=== PATIENT | female | born 1975 | race Two or more races ===

== ENCOUNTER 2018-04-01 15:29 | Emergency (ER) | payer MEDICAID ==
[~2018-04-01] VITALS: Ht 152.4 cm; Wt 117.9 kg
[2018-04-01 15:53] VITALS: BP 131/73
[2018-04-01] MEDS ORDERED: KETOROLAC TROMETH 60MG/2ML VIAL IM ONE (16:15)
== END 2018-04-01 17:10 | disposition home or self-care (01) ==
LOC: ER 15:38
DX: L02.212 Cutaneous abscess of back [any part, except buttock and flank] (principal); E11.9 Type 2 diabetes mellitus without complications; Z79.4 Long term (current) use of insulin
CPT/HCPCS: 82962; 96372; 99283; J1885

== ENCOUNTER 2018-04-05 15:00 | Inpatient (IN) | payer MEDICAID ==
[~2018-04-05] VITALS: Ht 162.6 cm; Wt 106.0 kg
[2018-04-05] MEDS ORDERED: cefTRIAXone 1GM/50ML D5W 50 ML IV ONE (20:15)
[2018-04-05] MEDS ORDERED: VANCOMYCIN 1GM/250ML 250 ML IV ONE (20:15)
[2018-04-05 21:17] LABS: Basophils # (auto) 0.1 uL; Basophils % (auto) 1.3 % (0.0-2.0); Eosinophils # (auto) 0.2 uL; Eosinophils % (auto) 1.7 % (0.0-7.0); Hematocrit 34.5 % (36.0-46.0); Hemoglobin 11.1 g/dL (12.2-16.2); Lymphocytes # (auto) 2.4 uL; Lymphocytes % (auto) 24.7 % (10.0-50.0); Mean Corpuscular Hgb Conc. 32.3 g/dL (32.0-36.0); Mean Corpuscular Volume 89.9 fL (80.0-100.0); Monocytes # (auto) 0.9 uL; Neutrophils # (auto) 6.2 uL; Neutrophils % (auto) 63.3 % (37.0-80.0); Nucleated Red Blood Cells % 0.1 %; Platelet Count (auto) 338 10^3/uL (140-450); Red Blood Cells 3.84 10^6/uL (4.0-5.20); Red Cell Distribution Width 13.8 % (11.8-14.3); White Blood Cell 9.8 10^3/uL (4.4-10.8)
[2018-04-05 21:36] LABS: Albumin 2.7 g/dL (3.4-5.0); BUN/Creatinine Ratio 24.7; Calcium 8.9 mg/dL (8.5-10.1)
[2018-04-05 21:38] LABS: Bilirubin, Total 0.5 mg/dL (0.2-1.0); Total Protein 8.4 g/dL (6.4-8.2)
[2018-04-05] MEDS ORDERED: DEXTROSE (50%) 50ML SYRG IV PRN (22:00)
[2018-04-05] MEDS ORDERED: HYDROcodone-ACET 5/325MG TAB PO PRN (22:00)
[2018-04-05] MEDS: InsuLIN REG 1unit/0.01ml Soln (100units/ml) SC SCH (22:00)
[2018-04-05] MEDS: ACCU-CHEK COMFORT CURVE STRIP VI SCH (22:00)
[2018-04-05] MEDS ORDERED: ACETAMINOPHEN 500 MG TAB PO PRN (22:00)
[2018-04-05] MEDS ORDERED: ONDANSETRON HCL 4 MG/2 ML VIAL IV PRN (22:00)
[2018-04-05 22:45] VITALS: BP 130/74
[2018-04-05] MEDS: INSULIN LANTUS (GLARGINE) 1 /0.01ml (100units/ml) SC SCH (23:10)
[2018-04-06] MEDS ORDERED: INSLANTI SC (02:39)
[2018-04-06 05:00] VITALS: BP 129/71
[2018-04-06 06:19] LABS: Basophils # (auto) 0.1 uL; Basophils % (auto) 1.4 % (0.0-2.0); Eosinophils # (auto) 0.2 uL; Eosinophils % (auto) 2.1 % (0.0-7.0); Hematocrit 32.7 % (36.0-46.0); Hemoglobin 10.8 g/dL (12.2-16.2); Lymphocytes # (auto) 2.2 uL; Lymphocytes % (auto) 28.5 % (10.0-50.0); Mean Corpuscular Hemoglobin 29.4 pg (28.0-32.0); Mean Corpuscular Volume 89.1 fL (80.0-100.0); Monocytes # (auto) 0.8 uL; Monocytes % (auto) 10.1 % (0.0-12.0); Neutrophils # (auto) 4.5 uL; Neutrophils % (auto) 57.9 % (37.0-80.0); Nucleated Red Blood Cells % 0.3 %; Platelet Count (auto) 345 10^3/uL (140-450); Red Blood Cells 3.67 10^6/uL (4.0-5.20); Red Cell Distribution Width 13.8 % (11.8-14.3); White Blood Cell 7.8 10^3/uL (4.4-10.8)
[2018-04-06] MEDS: CLINDAMYCIN 600MG IV 50 ML IV SCH ×3 (06:19→22:16)
[2018-04-06 06:20] LABS: Urine Bacteria MOD /hpf (None Seen); Urine Blood Negative /uL (Negative); Urine Specific Gravity 1.019 (1.001-1.035); Urine WBC 8 /hpf (0 - 5)
[2018-04-06] MEDS: ACCU-CHEK COMFORT CURVE STRIP VI SCH ×3 (07:24→17:56)
[2018-04-06] MEDS: InsuLIN REG 1unit/0.01ml Soln (100units/ml) SC SCH ×3 (07:24→17:55)
[2018-04-06 08:49] VITALS: BP 127/72
[2018-04-06] MEDS: LEVOFLOXACIN 500MG 100 ML IV SCH (10:23)
[2018-04-06] MEDS: INSULIN LANTUS (GLARGINE) 1 /0.01ml (100units/ml) SC SCH ×2 (10:23→21:39)
[2018-04-06 10:53] LABS: INR 0.95 (0.9-1.15); Partial Thromboplastin Time 29.7 sec (23.78-33.04); Prothrombin Time 10.2 sec (9.27-12.13)
[2018-04-06 13:07] VITALS: BP 137/85
[2018-04-06] MEDS ORDERED: ASCORBIC ACID 500 MG TAB PO ONE (15:30)
[2018-04-06 17:01] VITALS: BP 156/84
[2018-04-06] MEDS ORDERED: DEXTROSE (50%) 50ML SYRG IV PRN (18:15)
[2018-04-06] MEDS: Glucerna Carbsteady SHAKE Stawberry 8oz PO SCH (19:39)
[2018-04-06] MEDS: ASCORBIC ACID 500 MG TAB PO SCH (21:25)
[2018-04-06] MEDS: cefTRIAXone 1GM/50ML D5W 50 ML IV SCH (21:25)
[2018-04-06 22:00] VITALS: BP 151/77
[2018-04-07] MEDS: InsuLIN REG 1unit/0.01ml Soln (100units/ml) SC SCH ×4 (00:03→16:39)
[2018-04-07] MEDS: ACCU-CHEK COMFORT CURVE STRIP VI SCH ×4 (00:03→16:27)
[2018-04-07 05:18] VITALS: BP 167/92
[2018-04-07] MEDS: CLINDAMYCIN 600MG IV 50 ML IV SCH ×3 (05:50→22:18)
[2018-04-07] MEDS: Glucerna Carbsteady SHAKE Stawberry 8oz PO SCH ×3 (08:00→18:04)
[2018-04-07 08:41] VITALS: BP 137/80
[2018-04-07] MEDS: INSULIN LANTUS (GLARGINE) 1 /0.01ml (100units/ml) SC SCH ×2 (09:52→22:00)
[2018-04-07] MEDS: ASCORBIC ACID 500 MG TAB PO SCH ×2 (09:52→22:18)
[2018-04-07] MEDS: LEVOFLOXACIN 500MG 100 ML IV SCH (09:53)
[2018-04-07 13:00] VITALS: BP 136/77
[2018-04-07] MEDS ORDERED: ceFAZolin 1GM/50ML 50 ML IV ONE (13:07)
[2018-04-07] MEDS ORDERED: MIDAZOLAM HCL 1MG/1ML-2 ML VIAL ONE (13:58)
[2018-04-07] MEDS ORDERED: fentaNYL CITRATE 100 MCG/2 ML VL ONE (13:58)
[2018-04-07] MEDS ORDERED: HYDROmorphone HCL 2 MG/ML VL IV PRN (14:00)
[2018-04-07] MEDS ORDERED: MORPHINE SULFATE 4 MG/ML SYR/VIAL IV ONE (14:00)
[2018-04-07] MEDS ORDERED: KETOROLAC TROMETH 30 MG/ML 1ML VIAL IV ONE (14:00)
[2018-04-07] MEDS ORDERED: MIDAZOLAM HCL 1MG/1ML-2 ML VIAL IV PRN (14:00)
[2018-04-07] MEDS ORDERED: ePHEDrine SULFATE 50 MG/ML AMP IV PRN (14:00)
[2018-04-07] MEDS ORDERED: ONDANSETRON HCL 4 MG/2 ML VIAL IV ONE (14:00)
[2018-04-07] MEDS ORDERED: LABETALOL HCL 5 MG/ML 4ML SYRINGE IV PRN (14:00)
[2018-04-07] MEDS ORDERED: PROPOFOL 10 MG/ML 20 ML IV ONE (14:08)
[2018-04-07] MEDS ORDERED: DEXAMETHASONE SOD PHOS 10MG/1ML VIAL INJ ONE (14:08)
[2018-04-07] MEDS: MORPHINE SULFATE 4 MG/ML SYR/VIAL IV PRN ×2 (16:10→22:18)
[2018-04-07 17:03] VITALS: BP 148/88
[2018-04-07 22:00] VITALS: BP 152/94
[2018-04-07] MEDS: cefTRIAXone 1GM/50ML D5W 50 ML IV SCH (22:18)
[2018-04-08 05:00] VITALS: BP 123/69
[2018-04-08] MEDS: CLINDAMYCIN 600MG IV 50 ML IV SCH ×3 (05:22→22:10)
[2018-04-08] MEDS: InsuLIN REG 1unit/0.01ml Soln (100units/ml) SC SCH ×4 (06:00→18:25)
[2018-04-08] MEDS: ACCU-CHEK COMFORT CURVE STRIP VI SCH ×5 (06:00→23:55)
[2018-04-08 07:13] LABS: Basophils # (auto) 0 uL; Basophils % (auto) 0.5 % (0.0-2.0); Eosinophils # (auto) 0 uL; Eosinophils % (auto) 0.2 % (0.0-7.0); Hematocrit 33.9 % (36.0-46.0); Hemoglobin 11.4 g/dL (12.2-16.2); Lymphocytes # (auto) 1.8 uL; Lymphocytes % (auto) 18.4 % (10.0-50.0); Mean Corpuscular Hgb Conc. 33.6 g/dL (32.0-36.0); Mean Corpuscular Volume 89.3 fL (80.0-100.0); Monocytes # (auto) 0.6 uL; Monocytes % (auto) 6.3 % (0.0-12.0); Neutrophils # (auto) 7.2 uL; Neutrophils % (auto) 74.6 % (37.0-80.0); Platelet Count (auto) 425 10^3/uL (140-450); Red Blood Cells 3.79 10^6/uL (4.0-5.20); Red Cell Distribution Width 14.2 % (11.8-14.3); White Blood Cell 9.6 10^3/uL (4.4-10.8)
[2018-04-08 07:35] LABS: BUN/Creatinine Ratio 25.7; Calcium 8.7 mg/dL (8.5-10.1); Potassium 4.3 mmol/L (3.5-5.1)
[2018-04-08 07:50] LABS: Cholesterol 186 mg/dL (< 200)
[2018-04-08 07:52] LABS: HDL Cholesterol 25 mg/dL (40-59); LDL Cholesterol 141 mg/dL (< 100); Triglycerides 158 mg/dL (< 150)
[2018-04-08] MEDS: Glucerna Carbsteady SHAKE Stawberry 8oz PO SCH ×2 (08:37→18:24)
[2018-04-08 09:25] VITALS: BP 132/73
[2018-04-08] MEDS: ASCORBIC ACID 500 MG TAB PO SCH ×2 (09:58→22:10)
[2018-04-08] MEDS: INSULIN LANTUS (GLARGINE) 1 /0.01ml (100units/ml) SC SCH ×2 (09:59→22:10)
[2018-04-08 12:46] VITALS: BP 127/74
[2018-04-08] MEDS: SODIUM CHLORIDE 0.9% 1,000 ML IV SCH ×2 (15:00→22:10)
[2018-04-08 16:14] VITALS: BP 144/90
[2018-04-08] MEDS ORDERED: DEXTROSE (50%) 50ML SYRG IV PRN (18:00)
[2018-04-08 20:39] VITALS: BP 135/77
[2018-04-08] MEDS: cefTRIAXone 1GM/50ML D5W 50 ML IV SCH (23:00)
[2018-04-09] MEDS: InsuLIN REG 1unit/0.01ml Soln (100units/ml) SC SCH ×4 (00:25→18:00)
[2018-04-09 05:01] VITALS: BP 120/79
[2018-04-09] MEDS: CLINDAMYCIN 600MG IV 50 ML IV SCH ×2 (05:39→14:24)
[2018-04-09] MEDS: ACCU-CHEK COMFORT CURVE STRIP VI SCH ×3 (05:50→18:00)
[2018-04-09 06:19] LABS: Eosinophils # (auto) 0.2 uL; Eosinophils % (auto) 2.1 % (0.0-7.0); Hemoglobin 11.7 g/dL (12.2-16.2); Monocytes # (auto) 0.6 uL; Nucleated Red Blood Cells % 0.1 %
[2018-04-09 06:22] LABS: Basophils # (auto) 0 uL; Basophils % (auto) 0.5 % (0.0-2.0); Hematocrit 35.1 % (36.0-46.0); Lymphocytes # (auto) 4.2 uL; Lymphocytes % (auto) 41.8 % (10.0-50.0); Mean Corpuscular Hemoglobin 29.8 pg (28.0-32.0); Mean Corpuscular Hgb Conc. 33.5 g/dL (32.0-36.0); Mean Corpuscular Volume 89.1 fL (80.0-100.0); Monocytes % (auto) 5.9 % (0.0-12.0); Neutrophils % (auto) 49.7 % (37.0-80.0); Platelet Count (auto) 505 10^3/uL (140-450); Red Blood Cells 3.94 10^6/uL (4.0-5.20); Red Cell Distribution Width 14.3 % (11.8-14.3); White Blood Cell 10.1 10^3/uL (4.4-10.8)
[2018-04-09 06:33] LABS: Albumin 2.7 g/dL (3.4-5.0); Calcium 9.1 mg/dL (8.5-10.1); Potassium 3.8 mmol/L (3.5-5.1)
[2018-04-09 06:38] LABS: BUN/Creatinine Ratio 30.6; Bilirubin, Total 0.2 mg/dL (0.2-1.0); Total Protein 7.9 g/dL (6.4-8.2)
[2018-04-09 08:11] VITALS: BP 123/82
[2018-04-09] MEDS: ASCORBIC ACID 500 MG TAB PO SCH (11:30)
[2018-04-09] MEDS: Glucerna Carbsteady SHAKE Stawberry 8oz PO SCH ×2 (11:30→18:00)
[2018-04-09] MEDS: SODIUM CHLORIDE 0.9% 1,000 ML IV SCH (11:30)
[2018-04-09] MEDS: INSULIN LANTUS (GLARGINE) 1 /0.01ml (100units/ml) SC SCH (11:30)
[2018-04-09 13:25] VITALS: BP 125/85
[2018-04-09 13:42] VITALS: BP 125/85
[2018-04-09 16:44] VITALS: BP 122/78
== END 2018-04-09 18:45 | disposition home health service (06) | DRG 720 ==
LOC: ER 15:04 → OVERFLOW 22:10 → WEST WING 22:45
PROVIDERS: ADMIT Nurse Practitioner Family; ATTEND Internal Medicine
PROC: 0W9K0ZZ Drainage of Upper Back, Open Approach (ICD-10-PCS; principal; 2018-04-07 13:55)
DX: A41.9 Sepsis, unspecified organism (principal); E43 Unspecified severe protein-calorie malnutrition; K75.81 Nonalcoholic steatohepatitis (NASH); L02.232 Carbuncle of back [any part, except buttock and flank]; E11.65 Type 2 diabetes mellitus with hyperglycemia; E66.01 Morbid (severe) obesity due to excess calories; D64.9 Anemia, unspecified; R94.5 Abnormal results of liver function studies; L02.212 Cutaneous abscess of back [any part, except buttock and flank]; Z68.41 Body mass index [BMI] 40.0-44.9, adult; Z79.4 Long term (current) use of insulin
CPT/HCPCS: 36415; 71045; 80048; 80053; 80061; 81001; 81025; 82962; 83036; 83605; 85025; 85610; 85730; 86850; 86900; 86901; 87040; 87070; 87075; 87077; 87081; 87186; 87205; 93005; 94761; 96374; 96375; A6257; G0378; J0690; J0696; J1100; J1815; J1956; J2250; J2704; J3490